=== PATIENT | female | born 1995 | race Caucasian/White ===

== ENCOUNTER 2017-11-14 16:11 | Emergency (ER) | payer OTHER ==
[~2017-11-14] VITALS: Ht 152.4 cm; Wt 70.0 kg
[2017-11-14 16:13] VITALS: BP 130/60; PULSE 76; RESP 16; TEMP 97.9; O2SAT 97
[2017-11-14] MEDS ORDERED: FERR325T18 PO (16:23)
[2017-11-14] MEDS ORDERED: SODIUM CHLOR 0.9% 1000 ML INJ 1,000 ML IV ONE (16:30)
[2017-11-14] MEDS ORDERED: diphenhydrAMINE HCL 50 MG/ML VIAL IV PUSH ONE (16:30)
[2017-11-14] MEDS ORDERED: METOCLOPRAMIDE INJ 10 MG in SODIUM CHLORIDE 0.9% INJ 50 ML IV ONE (16:30)
[2017-11-14] MEDS ORDERED: KETOROLAC TROMETHAMINE 30 MG/ML (IVP) VIAL IV PUSH ONE (16:30)
[2017-11-14 16:49] VITALS: BP 118/58; PULSE 63; RESP 17; O2SAT 100
--- NOTE | 2017-11-14 16:51 | PD ---
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 She says she has had a headache on and off for the past 3 weeks. She has tried taking Tylenol and ibuprofen with only minimal relief. She says usually she says that the lights and goes to sleep, and this helps. Patient denies fever chills. She did give 2 months ago, and says that she just started spotting today. She denies any blurred vision. She denies nausea or vomiting. She says she has had headaches in the past, but they have never lasted this long. She denies any head injury. Severity is mild to moderate. [facility] Past Medical History Anemia: Yes Diminished Hearing: No Headaches: Yes Tetanus Vaccination: < 5 Years Influenza Vaccination: Yes ?: Not : 1 Para: 1 Past Surgical History Section: Yes (x1) Tonsillectomy: Yes (and adenoids) Social History Alcohol Use: No Tobacco Use: No Substance Use: No Allergies-Medications (Allergen,Severity, Reaction): Coded Allergies: No Known Allergies (Verified Allergy, Unknown, 11/14/17) Reported Meds & Prescriptions Reported Meds & Active Scripts Active Reported Ferrous Sulfate 325 Mg (65 Mg Iron) Tablet 325 Mg PO DAILY Review of Systems Except as stated in HPI: all other systems reviewed are Neg General / Constitutional: No: Fever, Chills Eyes: No: Blurred Vision HENT: Positive: Headaches, Lightheadedness Cardiovascular: No: Chest Pain or Discomfort Respiratory: No: Shortness of Breath Gastrointestinal: No: Nausea, Vomiting Genitourinary: Positive: Vaginal Bleeding Skin: No Rash, No Itching Physical Exam Narrative GENERAL: Awake and alert, in no acute distress. SKIN: Focused skin assessment warm/dry. No wounds or signs of infection. HEAD: Atraumatic. Normocephalic. EYES: Pupils equal and round. No scleral icterus. Extraocular movements intact. ENT: Mucous membranes pink and moist. NECK: Trachea midline. No JVD. CARDIOVASCULAR: Regular rate and rhythm. No murmur appreciated. RESPIRATORY: No accessory muscle use. Clear to auscultation. Breath sounds equal bilaterally. GASTROINTESTINAL: Abdomen soft, non-tender, nondistended. MUSCULOSKELETAL: No obvious deformities. No clubbing. No cyanosis. No edema. NEUROLOGICAL: Awake and alert. No obvious cranial nerve deficits. Motor grossly within normal limits. Normal speech. PSYCHIATRIC: Appropriate mood and affect; insight and judgment normal. Data Data Last Documented VS Vital Signs Date Time Temp Pulse Resp B/P (MAP) Pulse Ox O2 Delivery O2 Flow Rate FiO2 11/14/17 16:13 97.9 76 16 130/60 (83) 97 Orders Orders Iv Access Insert/Monitor (11/14/17 16:28) Complete Blood Count With Diff (11/14/17 16:28) Comprehensive Metabolic Panel (11/14/17 16:28) Urinalysis - C+S If Indicated (11/14/17 16:28) Sodium Chlor 0.9% 1000 Ml Inj (Ns 1000 M (11/14/17 16:30) Ketorolac Inj (Toradol Inj) (11/14/17 16:30) Diphenhydramine Inj (Benadryl Inj) (11/14/17 16:30) Metoclopramide Inj (Reglan Inj) (11/14/17 16:30) MDM Medical Decision Making Medical Screen Exam Complete: Yes Emergency Medical Condition: Yes Medical Record Reviewed: Yes Differential Diagnosis Tension headache versus dehydration versus migraine versus anemia Narrative Course Patient is a 22-year-old female, with a 2-month-old infant, who comes in complaining of a frontal headache. Exam shows no neurologic abnormalities. IV established, labs sent. Patient given IV fluids, Toradol, Benadryl, Reglan. Patient signed out to Dr. Hood to follow-up testing and disposition the patient. Nely Guzmán MD Nov 14, 2017 16:51
[2017-11-14 17:20] LABS: AUTOMATED NEUTROPHIL # 3.9 TH/MM3 (1.8-7.7); BASOPHIL % 0.7 % (0.0-2.0); EOSINOPHIL # 0.1 TH/MM3 (0-0.4); EOSINOPHIL % 1.7 % (0.0-4.0); HEMATOCRIT 31.2 % (35.0-46.0); HEMOGLOBIN 10.1 GM/DL (11.6-15.3); LYMPHOCYTE # 2.6 TH/MM3 (1.0-4.8); MEAN CELL VOLUME 67.4 FL (80.0-100.0); MEAN CORPUSCULAR HEMOGLOBIN 21.8 PG (27.0-34.0); MEAN CORPUSCULAR HGB CONC 32.4 % (32.0-36.0); MEAN PLATELET VOLUME 9.7 FL (7.0-11.0); MONO % 7.5 % (0.0-8.0); MONOCYTE # 0.5 TH/MM3 (0-0.9); NEUT % 54.1 % (16.0-70.0); PLATELET COUNT 322 TH/MM3 (150-450); RED BLOOD COUNT 4.63 MIL/MM3 (4.00-5.30); RED CELL DISTRIBUTION WIDTH 18.3 % (11.6-17.2); WHITE BLOOD COUNT 7.2 TH/MM3 (4.0-11.0)
[2017-11-14 17:21] LABS: BACTERIA, URINE OCC /hpf; BILIRUBIN, URINE NEG (NEG); BLOOD, URINE MOD (NEG); GLUCOSE,URINE NEG (NEG); HYALINE CAST, URINE 2 /lpf (RARE); KETONE, URINE NEG (NEG); MUCUS URINE FEW /lpf (OCC); NITRITE,URINE NEG (NEG); SQUAMOUS EPITHELIAL CELL URINE 10 /hpf (0-5); URINE COLOR YELLOW (YELLW/STRAW); URINE LEUKOCYTE ESTERASE LARGE (NEG)
[2017-11-14 17:30] LABS: ALBUMIN 3.7 GM/DL (3.4-5.0); AST (GOT) 12 U/L (15-37); BICARBONATE 27.9 MEQ/L (21.0-32.0); BLOOD UREA NITROGEN 11 MG/DL (7-18); CALCIUM 8.7 MG/DL (8.5-10.1); CHLORIDE 107 MEQ/L (98-107); CREATININE 0.58 MG/DL (0.50-1.00); GLOMERULAR FILTRATION RATE 131 ML/MIN (>89); GLUCOSE,RANDOM 92 MG/DL (74-106); SODIUM (NA) 141 MEQ/L (136-145)
[2017-11-14 17:33] LABS: ALKALINE PHOSPHATASE 89 U/L (45-117); ALT (GPT) 12 U/L (10-53); TOTAL BILIRUBIN ADULT 0.3 MG/DL (0.2-1.0); TOTAL PROTEIN 7.4 GM/DL (6.4-8.2)
--- NOTE | 2017-11-14 18:26 | PD ---
Data Data Last Documented VS Vital Signs Date Time Temp Pulse Resp B/P (MAP) Pulse Ox O2 Delivery O2 Flow Rate FiO2 11/14/17 16:49 63 17 118/58 (78) 100 Room Air 11/14/17 16:13 97.9 Orders Orders Iv Access Insert/Monitor (11/14/17 16:28) Complete Blood Count With Diff (11/14/17 16:28) Comprehensive Metabolic Panel (11/14/17 16:28) Urinalysis - C+S If Indicated (11/14/17 16:28) Sodium Chlor 0.9% 1000 Ml Inj (Ns 1000 M (11/14/17 16:30) Ketorolac Inj (Toradol Inj) (11/14/17 16:30) Diphenhydramine Inj (Benadryl Inj) (11/14/17 16:30) Metoclopramide Inj (Reglan Inj) (11/14/17 16:30) Urine Culture (11/14/17 16:35) Labs Laboratory Tests Test 11/14/17 16:35 White Blood Count 7.2 TH/MM3 Red Blood Count 4.63 MIL/MM3 Hemoglobin 10.1 GM/DL Hematocrit 31.2 % Mean Corpuscular Volume 67.4 FL Mean Corpuscular Hemoglobin 21.8 PG Mean Corpuscular Hemoglobin Concent 32.4 % Red Cell Distribution Width 18.3 % Platelet Count 322 TH/MM3 Mean Platelet Volume 9.7 FL Neutrophils (%) (Auto) 54.1 % Lymphocytes (%) (Auto) 36.0 % Monocytes (%) (Auto) 7.5 % Eosinophils (%) (Auto) 1.7 % Basophils (%) (Auto) 0.7 % Neutrophils # (Auto) 3.9 TH/MM3 Lymphocytes # (Auto) 2.6 TH/MM3 Monocytes # (Auto) 0.5 TH/MM3 Eosinophils # (Auto) 0.1 TH/MM3 Basophils # (Auto) 0.0 TH/MM3 CBC Comment DIFF FINAL Differential Comment Urine Color YELLOW Urine Turbidity HAZY Urine pH 6.0 Urine Specific [place] 1.017 Urine Protein TRACE mg/dL Urine Glucose (UA) NEG mg/dL Urine Ketones NEG mg/dL Urine Occult Blood MOD Urine Nitrite NEG Urine Bilirubin NEG Urine Urobilinogen LESS THAN 2.0 MG/DL Urine Leukocyte Esterase LARGE Urine RBC 121 /hpf Urine WBC 64 /hpf Urine Squamous Epithelial Cells 10 /hpf Urine Bacteria OCC /hpf Urine Hyaline Casts 2 /lpf Urine Mucus FEW /lpf Microscopic Urinalysis Comment CULTURE INDICATED Blood Urea Nitrogen 11 MG/DL Creatinine 0.58 MG/DL Random Glucose 92 MG/DL Total Protein 7.4 GM/DL Albumin 3.7 GM/DL Calcium Level 8.7 MG/DL Alkaline Phosphatase 89 U/L Aspartate Amino Transf (AST/SGOT) 12 U/L Alanine Aminotransferase (ALT/SGPT) 12 U/L Total Bilirubin 0.3 MG/DL Sodium Level 141 MEQ/L Potassium Level 4.0 MEQ/L Chloride Level 107 MEQ/L Carbon Dioxide Level 27.9 MEQ/L Anion Gap 6 MEQ/L Estimat Glomerular Filtration Rate 131 ML/MIN MDM Supervised Visit with THIAGO: No Narrative Course This case is checked out to me by Dr. Robb at 5 PM. With the nurse I have reevaluated the patient at 6:20 PM. CBC shows some mild anemia with hemoglobin of 10.1 Metabolic studies are normal Urinalysis shows some inflammatory cells and hematuria but she is currently in the middle of an anabiotic course and reports that her urine symptoms have resolved I advised her to contact her physician tomorrow and let her know that we did urine studies and are culturing the urine and her physician should follow up the culture results and consider repeat urinalysis after the antibiotics are done Her headache feels much better and she stable for outpatient follow-up Diagnosis Primary Impression: Headache Qualified Codes: R51 - Headache Additional Impressions: Anemia Qualified Codes: D64.9 - Anemia, unspecified Pyuria Additional Instruction: The patient was advised to follow up with their physician and return if they worsen. Med/Other Pt SpecificInfo: Other Disposition: 01 DISCHARGE HOME Condition: Stable Salvador Hood MD Nov 14, 2017 18:26
== END 2017-11-14 18:50 | disposition home or self-care (01) ==
LOC: NEPD 16:11
DX: D64.9 Anemia, unspecified (principal); R51 Headache; N39.0 Urinary tract infection, site not specified; R31.9 Hematuria, unspecified
CPT/HCPCS: 80053; 81001; 85025; 87086; 96361; 96365; 96375; 99284; J1200; J1885; J2765; J7030